=== PATIENT | female | born 1945 | race Caucasian/White ===

== ENCOUNTER 2016-10-18 06:51 | Day surgery (SDC) | payer MEDICARE ==
--- NOTE | 2016-10-06 10:37 | HP ---
Chief Complaint - Chief Complaint Date of Service: 10/06/16 Chief Complaint: need a colonoscopy History of Present Illness: 71 year old female who has never had a colonoscopy. History of lymphoma. No changes in bowel habits, no blood in stools, no weight loss or night sweats. - Patient's Past Medical History Patient History - Medical: Osteoarthritis Patient History - Cancer: Lymphoma Patient History - Surgical Procedures: Cataracts, Orthopedic - ORIF left wrist LMP (females 10-50): Menopausal - 10 years ago - Family History Family History:: no untoward family reactions to anesthesia, no familial bleeding tendencies - Family History Mother Family History - Medical: Family History - Cardiac/Respiratory: Pulmonary Embolism Family History - Cancer: Lymphoma Father Family History - Medical: Family History - Cardiac/Respiratory: CVA/Stroke - Social History Living Situations: spouse Abuse History: No History of abuse Psych History: No pertinent hx Does anyone smoke in the home?: No Alcohol Use: none Drug Use: none - Immunizations Immunizations Up to Date: No Hx Pneumococcal Vaccination: No History of Influenza Vaccine: Yes Review Of Systems (GEN) - Review of Systems Generalized/Overall Review: Absent: Weakness, Chills, Fever, Malaise, Fatigue, Weight loss EENTM: Absent: Tearing, Ear Pain, Nose Congestion, Throat Pain Respiratory: Absent: Cough, Shortness of Breath, Stridor, Wheezing Cardiac: Absent: Chest Pain, Edema, Palpitations Abdominal: Present: Constipation. Absent: Nausea, Vomiting, Abdominal Pain, Diarrhea, Bright blood from rectum Genitourinary: Present: Urgency, Nocturia. Absent: Frequency, Hesitancy, Incontinent Musculoskeletal: Present: Joint Pain Neurological: Absent: Headache, Anxiety, Depressed, Emotional Problems, Tingling , Tremors, Weakness Skin: Absent: Dryness, Lesions, Lumps, Rash, Bruising Endocrine: Absent: Intolerance to Cold, Intolerance to Heat, Excessive Sweating Allergies/Adverse Reactions: Allergies Allergy/AdvReac Type Severity Reaction Status Date / Time No Known Allergies Allergy Verified 10/06/16 10:33 Home Medications: HOME MEDICATIONS Aspirin [Aspirin Enteric Coated] 81 mg PO DAILY 05/12/15 [Last Taken Unknown] Naproxen Sodium [Aleve] 220 mg PO BID PRN 05/12/15 [Last Taken Unknown] Vit D3/Folic Acid/B2/B6/B12 [Folgard Tablet] 1 each PO 10/06/16 [Last Taken Unknown] Exam - Exam Vital Signs: Vital Signs - Last Taken Temp 36.5 10/06/2016 Pulse 70 Resp 15 BP 121/60 10/06/16 Pulse Ox Ht 5'3 Wt 165# Constitutional: Present: Alert, Oriented x3, Cooperative, Well developed, Well nourished, Mild distress, Overweight ENT Exam: Present: hearing grossly normal Eye Exam: bilateral eye: normal inspection Breasts: Present: Exam deferred Respiratory: Present: chest non-tender, lungs clear, normal breath sounds, no respiratory distress, no accessory muscle use Cardiovascular/Chest: Present: normal peripheral pulses, regular rate, rhythm, no chest tenderness, no edema, no gallop, no murmur Abdomen: Present: Normal bowel sounds, soft, nontender, nondistended, no masses /Rectal: Present: Exam deferred Extremity: Present: normal range of motion, non-tender, normal inspection, other - scar left wrist Skin Exam: Present: normal color, warm/dry, no cyanosis Neurologic: Present: no motor/sensory deficits, alert, normal mood/affect Appearance: Present: appropriate appearance, appropriate insight, neat, no memory impairment Eye contact: Present: cooperative, good eye contact, normal speech Thoughts: Present: normal thought pattern Assessment/Plan - Narrative Narrative: Discussed the risks and benefits for a colonoscopy. Prep discussed. Will schedule at her convenience. Questions answered. Can stay on baby ASA. - Assessment/Plan (1) Screen for colon cancer Problem: Acute (2) Lymphoma Problem: Resolved Qualifiers: Lymphoma type: Hodgkin
[~2016-10-18 06:51] MED LIST: RINGERS SOLUTION,LACTATED 1,000 ML IV PRN
--- OUTSIDE RECORDS SUMMARY | 2016-10-18 06:55 | XMS REPORT | Continuity of Care Document ---
:1945 Author Organization [facility] ([facility]) Address [address] [place] [address] Phone [phone] Care Team Providers Name Role Phone Betsy Aldana Primary Care Provider [phone] Source Comments This disclosure is being made pursuant to the Care Everywhere program, applicable federal and state laws, and may not contain all informaitonavailable regarding this patient.[facility] ([facility]) Active Allergies and Adverse Reactions No Active Allergies Current Medications Prescription Sig. Disp. Refills Start Date End Date Status aspirin 81 mg tablet Take 81 mg by mouth Active daily. 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 Antineoplastic and immunosuppressive drugs causing adverse effect in 2005 therapeutic use Social History Tobacco Use Types Packs/Day Years Used Date Former Smoker Cigarettes 1 15 Quit: 06/19/1983 Last Filed Vital Signs Vital Sign Reading Time Taken Blood Pressure 168/68 06/07/2011 8:59 AM APPOINTMENT COORDINATOR Pulse 58 06/07/2011 8:59 AM APPOINTMENT COORDINATOR Temperature 36.2 C (97.2 F) 06/07/2011 8:59 AM APPOINTMENT COORDINATOR Respiratory Rate 16 06/07/2011 8:59 AM APPOINTMENT COORDINATOR Height 1.66 m (5' 5.35") 06/07/2011 8:59 AM APPOINTMENT COORDINATOR Weight 72.4 kg (159 lb 9.8 oz) 06/07/2011 8:59 AM APPOINTMENT COORDINATOR Body Mass Index 26.27 06/07/2011 8:59 AM APPOINTMENT COORDINATOR Oxygen Saturation 98% 06/07/2011 8:59 AM APPOINTMENT COORDINATOR Plan of Care Health Maintenance Due Date Last Done Comments HCV Screening 1945 Hepatitis B Vaccine (1 of 3 - Primary Series) 1945 Tdap Vaccine 1957 Lipid Disorder Screening 1964 Td Vaccine 1964 Mammogram 1986 Colonoscopy 05/01/1996 Zoster Vaccine 2006 Osteoporosis Screening (DXA Bone Density) 2011 Pneumococcal Vaccine (1 of 2 - PCV13) 2011 Influenza Vaccine: Seasonal (#1) 01/18/2016 Results from Last 3 Months Not on file
[2016-10-18] MEDS ORDERED: RINGERS SOLUTION,LACTATED 1,000 ML IV PRN (08:30)
--- NOTE | 2016-10-18 08:32 | OR ---
Operative Report - Dictated Report Narrative: DATE OF PROCEDURE: 10/18/2016 PREOPERATIVE DIAGNOSIS: #1 Screening colonoscopy #2 history of lymphoma POSTOPERATIVE DIAGNOSIS: #1 Screening colonoscopy #2 extensive diverticulosis OPERATION: Colonoscopy SURGEON: Ritchie Russo M.D., FACS ANESTHESIA : Ac Lombardo CHERRY SORTER sedation INDICATIONS: This is a 71 year old female who presents for a screening colonoscopy. I have discussed the risks, benefits, indications, and contraindications for colonoscopy with the possibility of biopsy and/or polypectomy. She understands, agrees, and wishes to proceed. She has undergone a SUPREP and has tolerated it well. PROCEDURE: The patient was brought to the operating theater and placed into the left lateral decubitus position. The patient underwent sedation per anesthesia , and a digital rectal exam was performed. This was noted to be unremarkable. The patient was noted to have no internal or external hemorrhoids. The Olympus video colonoscope was introduced and advanced into the rectum. The rectum was normal in appearance. The scope was then advanced through the sigmoid, where extensive diverticular disease was noted. The scope was then advanced to the cecum using standard reduction techniques. The appendiceal orifice was noted. The ileocecal valve was noted. The prep appeared to be excellent with a Troy prep score of 9. The scope was withdrawn slowly as the ascending, transverse, descending, and sigmoid colon were examined in a circumferential fashion. The scope was brought back into the rectum where it was retroflexed in the lower rectum was examined. The air was decompressed, and the scope was then removed. Withdrawal time was 9 minutes. POSTOPERATIVE CONDITION: The patient was awakened and taken to the ambulatory surgery center in good condition. No complications were encountered. FINDINGS: Diverticulosis Specimens: None EBL: 0 The findings were discussed with the patient and her . I recommend a follow-up colonoscopy in 10 years for screening purposes.
[2016-10-18 09:43] VITALS: BP 157/63
== END 2016-10-18 06:52 | disposition home or self-care (01) ==
LOC: AMB 06:51
PROVIDERS: ATTEND Surgery
PROC: 0DJD8ZZ Inspection of Lower Intestinal Tract, Via Natural or Artificial Opening Endoscopic (ICD-10-PCS; principal; 2016-10-18 07:55)
DX: Z12.11 Encounter for screening for malignant neoplasm of colon (principal); K57.30 Diverticulosis of large intestine without perforation or abscess without bleeding; Z85.72 Personal history of non-Hodgkin lymphomas; Z68.29 Body mass index [BMI] 29.0-29.9, adult

== ENCOUNTER 2018-10-15 06:35 | Inpatient (IN) ==
--- NOTE | 2018-09-26 15:01 | ANES ---
Anesthesia Pre Procedure Eval HOME MEDICATIONS Aspirin [Aspirin Enteric Coated] 81 mg PO DAILY 05/12/15 [Last Taken Unknown] Cholecalciferol [Vitamin D] 5,000 unit PO DAILY 10/18/16 [Last Taken Unknown] lisinopril 20 mg tablet 20 mg PO DAILY 90 Days #90 tab 05/04/18 [Last Taken Unknown] atorvastatin 20 mg tablet 20 mg PO DAILY #90 tab 05/28/18 [Last Taken Unknown] acetaminophen ER 650 mg tablet,extended release 1,300 mg PO TID PRN tab 09/13/18 [Last Taken Unknown] Allergies/Adverse Reactions: Allergies Allergy/AdvReac Type Severity Reaction Status Date / Time No Known Allergies Allergy Verified 09/26/18 08:33 - Planned Procedure Planned Procedure: Left Arthroplasty Total Knee Medication List Reviewed:: Yes Allergies Verified: Yes Medical History (Updated 09/26/18 @ 08:33 by Loli Tijerina RN) Bilateral knee pain (Acute) Onset Date: Unknown Lymphoma malignant, 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 Tx'd with chemo and radiation- >5 years ago Cystocele (Chronic) Onset Date: ~09/03/13 midline Acquired hammertoe Onset Date: ~05/31/12 Wears dentures Wears eyeglasses Rectocele Onset Date: ~09/03/13 Surgical History (Updated 09/13/18 @ 08:57 by Brijesh Weiner) Cataract Onset Date: ~05/2015 bilateral H/O arthroscopy of knee Onset Date: ~1994 Rt 1995; Lt 1994 x 2 History of colonoscopy Onset Date: ~10/18/16 Dr. uRsso S/P wrist surgery Onset Date: ~1996 fracture LT ORIF Family History (Last Reviewed 07/14/18 @ 12:05 by Sophia Mclean RN) Father , 84-ruptured diverticulum, stroke at the age of 63. No problems noted. Mother , 76-Lumphoma, P.E. DM No problems noted. - Family Anesthesia History Family History:: no untoward family reactions to anesthesia, no familial bleeding tendencies, no family history of clotting disorders, no family history of premature - Airway/Neck/Teeth Within Normal Limits:: Yes Denture Type: Full upper, Partial lower Mallampatti Score: 3 Thyromental (T-M) distance: > 6 cm Mandibulo Hyoid distance: > 3 cm - Respiratory Smoking Status: Never smoker Discussed smoking cessation including day of surgery: No Sleep Apnea currently treated: No Sleep Apnea by current assessment: No Discussed Risks/Treatment of PRAKASH: No - Cardiovascular Tolerate Activity: Fair Heart Sounds: S1 & S2, Regular - Anesthesia Assessment and Plan ASA Class: PS, II Anesthesia Type Plan: Block - Left ultrasound guided peripheral nerve block for postop analgesia, Spinal
[~2018-10-15 06:35] MED LIST changes: +MORPHINE SULFATE 15 MG TABLET.SA PO PRN; -RINGERS SOLUTION,LACTATED 1,000 ML IV PRN; +ROPIVACAINE HCL/PF 100 MG, EPINEPHrine 0.2 MG, KETOROLAC TROMETHAMINE 30 MG in NORMAL S... IJ PRN; +TRANEXAMIC ACID 1,000 MG in NORMAL SALINE 100 ML IV PRN; +ceFAZolin SODIUM 1 GM VIAL IV PRN
[2018-10-15] MEDS: RINGER'S SOLUTION,LACTATED 1,000 ML IV PRN ×3 (07:16→09:58)
[2018-10-15] MEDS ORDERED: ACETAMINOPHEN 500 MG TABLET PO PRN (09:54)
[2018-10-15] MEDS ORDERED: ZOLPIDEM TARTRATE 5 MG TABLET PO PRN (09:54)
[2018-10-15] MEDS ORDERED: MAG HYDROX/ALUMINUM HYD/SIMETH 30 ML UDC PO PRN (09:54)
[2018-10-15] MEDS ORDERED: diphenhydrAMINE HCL 50 MG/ML VIAL IV PRN (09:54)
[2018-10-15] MEDS ORDERED: MORPHINE SULFATE 2 MG/ML DISP.SYRIN IV PRN (09:54)
[2018-10-15] MEDS ORDERED: MAGNESIUM HYDROXIDE 30 ML UDC PO PRN (09:54)
--- NOTE | 2018-10-15 09:54 | OR ---
Operative Report - Dictated Report Narrative: Date: 10/15/2018 Preoperative diagnosis: Left Knee degenerative joint disease. Postoperative diagnosis: Left Knee degenerative joint disease. Procedure: Left Total knee arthroplasty. Surgeon: Sedrick Rawls M.D. Cigarette Making Examiner: Waylon Kay PA-C (provided and essential set of skilled, educated hands that assisted with transfer, positioning, prepping, draping, manipulation, retraction, placement of jigs, injection, insertion of implants, irrigation, closure wounds, and dressings all of which could not be performed by the available surgical crew) Anesthesia: Spinal with regional block and local periarticular joint injection. Complications: None Specimens: Bone for disposal. Estimated blood loss: Minimal. Tourniquet time: 100 Minutes at 350 millimeters of mercury. Retained implants: Depuy Attune size 7 left lugged cemented posterior stabilized femoral component. Size 5 fixed-bearing cemented tibial platform. 7 by 6 millimeter posterior stabilized cross-linked tibial insert. 38 millimeter medialized patella button. Indications: Mrs. Deras is a 73-year-old female who has had long-standing bilateral knee pain arthrosis. She failed today for her left total knee with a staged right to be performed in 2 days. This patient was followed in my clinic for period of time with significant complaints of left knee pain consistent with arthritic changes. She had failed conservative measures including, but not limited to, activity modification, passage of time, medications, and other conservative measures. Patient wished to proceed with surgical treatment. The risks, benefits, and alternatives were discussed in clinic. The risks of , blood clots, bleeding, infection, nerve/tendon blood vessel/ injury, malposition of components, intraoperative fracture, postoperative limited range of motion, persistent pain, failure of components, and need for additional procedures. Patient wished to proceed consent was obtained after answering all questions. Procedure: After marking the correct extremity on the floor, the patient was taken to the operating room. A timeout was performed. IV antibiotics consisting of Ancef were administered prior to the procedure. A regional followed by spinal anesthetic was induced by anesthesia, per my request, on the operative table with all bony prominences well-padded. Mittal catheter was placed, and a bump was placed under the operative side buttock. SCDs and TOM hose were utilized on the nonoperative leg. A well-padded tourniquet was applied to the operative thigh. The operative leg was then pre-scrubbed with alcohol, prepped, and draped in a standard sterile fashion. After exsanguinating the extremity with an Esmarch bandage, the tourniquet was inflated. After marking out the anterior knee for standard incision centered over the patella, the skin was incised and dissected down to the joint retinaculum. The joint retinaculum was marked out as well as the horizontal axis of the patella, and a standard medial parapatellar arthrotomy was then made. The most proximal aspect of the quadriceps tendon and the patella tendon insertion were protected from release. A partial synovectomy was performed as well as a resection of the infrapatellar fat pad. The distal femoral fat pad proximal to the trochlea was also resected using cautery. The soft tissues were elevated off the medial aspect of the proximal tibia using a Rosado elevator ensuring that we did not transect the medial collateral ligament. Upon initial evaluation range of motion was approximately 5 degrees to 50 degrees of flexion. There were signs of advanced arthrosis in the medial, lateral, and patellofemoral joint spaces. There were large marginal osteophytes which were removed with a rongeur. The knee was hyperflexed and the patella was tucked laterally. Protecting the surrounding soft tissues with Homans, an entry drill was placed down the femoral canal using Whitesides line for guidance into the entry point. The intramedullary femoral alignment concepcion was utilized in order to cut the distal femur in 5 degrees of valgus resecting 11 millimeters of bone. Next the distal femur was sized to a size 7. A posterior referencing guide was utilized to place the distal femoral cutting block in 3 degrees of external rotation. This was pinned into place. The rotation was confirmed both visually and based on anatomic landmarks. The 4 in 1 cutting jig of the appropriate size was utilized in order to make all bony cuts. The angle wing was used to ensure no notching. Retractors were utilized in order to protect surrounding soft tissues. This cut did not result in any excessive notching. We then cut the box centered over the distal femur. This allowed for resection of the anterior and posterior cruciate ligaments. I then turned my attention to the preparation of the tibia. Using an extra medullary tibial alignment concepcion, 3 millimeters of bone was resected off the medial articular surface. This was made perpendicular to the mechanical axis of the joint with the alignment concepcion centered over the ankle mortise. The alignment concepcion was checked and was noted to be parallel to the mechanical axis, centered over the medial one third of the tibial tubercle, paralleling the anterior surface of the tibia. We then turned our attention to the remaining meniscus and soft tissues. These were removed while protecting the surrounding ligaments and soft tissues. The marginal osteophytes off the anterior, posterior, medial, lateral aspects of the femur and tibia were removed. The tibia was sized out to a size 5. Next the tibia was drilled and punched in an externally rotated position. Next the trial femur and a series of tibial inserts were utilized in order to allow for full extension and maximal flexion. It was found that a 6 millimeter insert gave the best range of motion and stability at multiple flexion points as well as at full extension there was less than 2 mm of gapping both medially and laterally. There is minimal anterior translation with the knee at 90 degrees of flexion and no signs of being able to dislocate the knee. The patella was then prepared. The initial thickness was 23 millimeters. This was reamed down to 13 millimeters parallel to the anterior surface of the patella. It was sized out to a size 38 medialized patella button. This was then drilled and trialed. Without any medial restraint the patella tracked appropriately and did not sublux or dislocate. At this point, it was felt these were the appropriate sized implants, and all trials were removed. The standard periarticular joint injection consisting of ropivacaine, Toradol, and epinephrine were injected into the periarticular joint tissues. The bony surfaces were thoroughly irrigated with a pulsatile-suction saline irrigation device. A bone plug from the prior resected anterior chamfer cut was placed into the drill hole at the distal femur. The bony surfaces were then dried in preparation for placement of the implants. The cement was vacuum mixed per the plug sorter's instructions. The cement was placed on the dry bony surfaces and posterior aspect of the implants. The implants were impacted into place, removing all extruded cement. At this point anesthesia administered tranexamic acid per protocol intravenously. The knee was placed in extension with axial loading with the trial insert while the cement cured. Once the cement cured, all remaining extruded cement was removed. The knee was placed through a range of motion with the trial insert to ensure appropriate range of motion and stability. Final range of motion was approximately 0 to 110 degrees. The knee was again thoroughly irrigated with pulsatile saline lavage. The final polyethylene insert was then impacted into place ensuring no retained soft tissues. The remaining periarticular joint injection was injected. A medium Hemovac drain was placed exiting superior laterally. The knee was then placed over a triangle and the arthrotomy was closed with interrupted #1 Vicryl after thoroughly irrigating the joint. The deep and subcutaneous tissues were closed with interrupted 0 and 3-0 Vicryl respectively. Skin was closed with a running subcutaneous 3-0 Monocryl and Prineo Dermabond dressing. 4 x 4's, Sof-Rol, and a full leg Carlo wrap were applied. All sponge, needle, blade, and instrument counts were correct prior to closing the wounds. Postoperative condition: The patient was awoken and transferred to the postanesthesia care unit in stable condition. Plan is to be admitted to the inpatient medical/surgical floor postoperatively for 24 hours of IV antibiotics, physical therapy, occupational therapy, and medical comanagement. Patient will be weightbearing as tolerated with range of motion as tolerated. Plan is for staged right total knee in 2 days. DVT prophylaxis will be with SCDs, TOM hose, and pharmacological anticoagulation.
--- NOTE | 2018-10-15 10:09 | ANES ---
Post Anesthesia Discharge - Transfer of Care Transfer of Care handoff given to nurse: Yes - Discharge from PACU Discharge from PACU when meets criteria: Yes - Alert and comfortable.
--- NOTE | 2018-10-15 10:09 | ANES ---
Anesthesia Procedure Note Procedure Note: ANESTHESIA PROCEDURE NOTE Date of Procedure: 10/15/2018 Time of procedure: 7:45 AM. Performed by: Giacomo Almodovar CRNA, MSN Earth Auger Operator: Loli Tijerina RN. Preprocedure diagnosis: Left total knee arthroplasty pain. Post procedure diagnosis: Same. Procedure: Left Adductor Canal Block. Indications: Post left total knee arthroplasty pain relief. Findings: See below. Details of the procedure: The patient was brought to OR #4 and placed in supine position. The patient's left femoral area to the knee was prepped with chlorhexidine and using ultrasound guidance the left femoral artery wasidentified at approximately the proximal one third femur. Under ultrasound guidance the saphenous nerve was approached with visualization of a 4 inch shielded block needle approaching the adductor canal just under the sartorius muscle. Once saphenous nerve was identified with proximity to the needle tip, the saphenous nerve was surrounded with 30 mL bupivacaine 0.5% with 1-200,000 epinephrine. Please see radiology/ultrasound report for details and retained images of the procedure. EBL: 0 Fluids: N/A. Specimen: N/A. Post procedure condition: The patient tolerated the procedure well. No complications were noted. Thank you for this consultation. Giacomo Almodovar CRNA, MSN
[2018-10-15] MEDS: DEXTROSE 5%-LACTATED RINGERS 1,000 ML IV PRN ×2 (11:06→19:53)
[2018-10-15] MEDS: KETOROLAC TROMETHAMINE 15 MG/ML VIAL IV SCH ×3 (11:08→22:15)
[2018-10-15] MEDS: oxyCODONE HCL/ACETAMINOPHEN 1 TAB TABLET PO PRN ×3 (12:56→22:13)
[2018-10-15] MEDS: ceFAZolin SODIUM 1 GM in DEXTROSE 5 % IN WATER 50 ML IV SCH ×6 (13:06→23:59)
--- NOTE | 2018-10-15 13:17 | ANES ---
Post Anesthesia Assessment - Vital Signs Vitals: Last Vital Signs Temp 36.5 C 10/15/18 10:49 Pulse 64 10/15/18 12:34 Resp 16 10/15/18 11:34 BP 144/61 10/15/18 12:34 Pulse Ox 99 10/15/18 12:34 Airway Patency: Normal - Mental Status Level Of Consciousness: Awake, Alert, Appropriate - Pain Level Pain Score: 0 - N/V Assessment Nausea/Vomiting Presence: None Dehydration:: No
[2018-10-15] MEDS: SENNOSIDES/DOCUSATE SODIUM 1 TAB TABLET PO SCH (20:34)
[2018-10-15] MEDS: ROSUVASTATIN CALCIUM 10 MG TABLET PO SCH (20:34)
[2018-10-15] MEDS: LISINOPRIL 20 MG TABLET PO SCH (20:36)
[2018-10-16] MEDS: oxyCODONE HCL/ACETAMINOPHEN 1 TAB TABLET PO PRN ×2 (02:33→12:50)
[2018-10-16] MEDS: KETOROLAC TROMETHAMINE 15 MG/ML VIAL IV SCH ×4 (04:03→21:27)
[2018-10-16 05:26] LABS: Hematocrit 28.1 % (37.0-47.0); Hemoglobin 8.9 gm/dL (12.5-16.0); Mean Cell Volume 90.6 fl (78-100); Mean Corpuscular Hemoglobin 28.7 pg (27-31); Mean Corpuscular Hgb Conc 31.7 g/dl (32-36); Mean Platelet Volume 9.4 fl (8-12.5); Platelet Count 146 K/mm3 (150-450); Red Cell Distribution Width 13.9 % (11.5-14.0); White Blood Count 5.5 K/mm3 (4.0-10.5)
[2018-10-16 05:37] LABS: Anion Gap 9.6 mmol/L (6.8-13.8); BUN/Creatinine Ratio 22.9 (9.0-21.6); Carbon Dioxide 26.7 mmol/L (24-32.6); Estimated Creat Clear 43.8; Potassium 4.3 mmol/L (3.4-4.6)
[2018-10-16] MEDS: ONDANSETRON HCL/PF 2 MG/ML VIAL IV PRN ×2 (07:20→16:34)
[2018-10-16] MEDS: CHOLECALCIFEROL 5,000 UNIT TABLET PO SCH (08:06)
[2018-10-16] MEDS: FERROUS SULFATE 325 MG TABLET PO SCH (08:06)
[2018-10-16] MEDS: ENOXAPARIN SODIUM 40 MG/0.4 ML SYRG SC SCH (08:06)
--- NOTE | 2018-10-16 08:23 | PN ---
Subjective - Date and Time Seen Date: 10/16/18 Time: 08:16 Subjective Narrative: Reports some nausea with pain medications. Otherwise no complaints. Was able to walk in room with therapy. Slept OK. Denies calf pain, fever/chills. PE : Left leg - sensation intact to light touch, able to flex and extend toes/ankle, calf soft, dressings dry, drain in place, palp DP A/P - POD 1 s/p left total knee arthroplasty Plan for right TKA tomorrow. Continue pain control. Will keep gipson in for tomorrows surgery. Lovenox , SCD, Felipe for DVT prophylaxis, continue home meds. Will recheck labs post-op as she has some anemia but is asymptomatic at this time. NPO after midnight. Right leg marked today. Objective - Vitals Vitals: Last Vital Signs Temp 36.7 C 10/16/18 07:50 Pulse 59 L 10/16/18 07:50 Resp 16 10/16/18 07:50 BP 115/50 10/16/18 07:50 Pulse Ox 94 10/16/18 07:50 - Abnormal Lab Findings Abnormal Lab Findings: Abnormal Lab Results 10/16/18 10/16/18 Range/Units 05:10 05:10 RBC 3.10 L (4.2-5.4) M/mm3 Hgb 8.9 L (12.5-16.0) gm/dL Hct 28.1 L (37.0-47.0) % MCHC 31.7 L (32-36) g/dl Plt Count 146 L (150-450) K/mm3 BUN/Creatinine Ratio 22.9 H (9.0-21.6) Random Glucose 113 H (70-110) mg/dL Cauti Physician Documentation - Urinary Catheter Management Urethral (Gipson) Urethral Indwelling: Yes Reason for Continuing Indwelling Catheter: Surgical Procedure Date of Insertion: 10/15/18 Time of Insertion: 08:05 Assessment/Plan - Problems/Diagnosis (1) Acute blood loss anemia Problem: Acute (2) Status post total left knee replacement Problem: Acute (3) Hyperlipidemia Problem: Chronic (4) Hypertension Problem: Chronic
[2018-10-16] MEDS: HYDROcodone/ACETAMINOPHEN 1 EACH TABLET PO PRN (21:26)
[2018-10-16] MEDS: ROSUVASTATIN CALCIUM 10 MG TABLET PO SCH (21:27)
[2018-10-16] MEDS: LISINOPRIL 20 MG TABLET PO SCH (21:27)
[2018-10-16] MEDS: SENNOSIDES/DOCUSATE SODIUM 1 TAB TABLET PO SCH (21:27)
[2018-10-17] MEDS: HYDROcodone/ACETAMINOPHEN 1 EACH TABLET PO PRN ×2 (02:43→12:20)
[2018-10-17] MEDS: KETOROLAC TROMETHAMINE 15 MG/ML VIAL IV SCH ×2 (04:34→17:09)
[2018-10-17] MEDS: DEXTROSE 5%-LACTATED RINGERS 1,000 ML IV PRN ×3 (06:55→19:55)
--- NOTE | 2018-10-17 07:14 | ANES ---
Anesthesia Pre Procedure Eval Vitals/Labs: Last Vital Signs Temp 36.6 C 10/17/18 06:32 Pulse 66 10/17/18 06:32 Resp 12 10/17/18 06:32 BP 129/82 10/17/18 06:32 Pulse Ox 94 10/17/18 06:32 Laboratory Last Values WBC 5.5 K/mm3 (4.0-10.5) 10/16/18 05:10 RBC 3.10 M/mm3 (4.2-5.4) L 10/16/18 05:10 Hgb 8.9 gm/dL (12.5-16.0) L 10/16/18 05:10 Hct 28.1 % (37.0-47.0) L 10/16/18 05:10 MCV 90.6 fl (78-100) 10/16/18 05:10 MCH 28.7 pg (27-31) 10/16/18 05:10 MCHC 31.7 g/dl (32-36) L 10/16/18 05:10 RDW 13.9 % (11.5-14.0) 10/16/18 05:10 Plt Count 146 K/mm3 (150-450) L 10/16/18 05:10 MPV 9.4 fl (8-12.5) 10/16/18 05:10 Sodium 133 mmol/L (132-142) 10/16/18 05:10 133 mmol/L (130-142) 10/16/18 05:10 Potassium 4.3 mmol/L (3.4-4.6) 10/16/18 05:10 Chloride 101 mmol/L (97-106) 10/16/18 05:10 Carbon Dioxide 26.7 mmol/L (24-32.6) 10/16/18 05:10 9.6 mmol/L (6.8-13.8) 10/16/18 05:10 BUN 22 mg/dL (3-23) 10/16/18 05:10 0.96 mg/dL (0.4-1.4) 10/16/18 05:10 Est GFR (Non-Af Amer) 61 mL/min (60-130) 10/16/18 05:10 22.9 (9.0-21.6) H 10/16/18 05:10 113 mg/dL (70-110) H 10/16/18 05:10 Calcium 8.0 mg/dL (7.9-10.9) 10/16/18 05:10 HOME MEDICATIONS Aspirin [Aspirin Enteric Coated] 81 mg PO DAILY 05/12/15 [Last Taken 10/05/18] Cholecalciferol [Vitamin D] 5,000 unit PO DAILY 10/18/16 [Last Taken 10/14/18] acetaminophen ER 650 mg tablet,extended release 1,300 mg PO TID PRN tab 09/13/18 [Last Taken 10/14/18] Atorvastatin Calcium [Lipitor] 20 mg PO HS 10/15/18 [Last Taken 10/14/18] Ferrous Sulfate [Iron] 325 mg PO DAILY 10/15/18 [Last Taken 10/14/18] Lisinopril 20 mg PO HS 10/15/18 [Last Taken 10/14/18] Allergies/Adverse Reactions: Allergies Allergy/AdvReac Type Severity Reaction Status Date / Time No Known Allergies Allergy Verified 10/08/18 13:55 - Planned Procedure Planned Procedure: Right Arthroplasty Total Knee Medication List Reviewed:: Yes Allergies Verified: Yes Medical History (Updated 10/16/18 @ 08:22 by Sedrick Rawls MD) Bilateral knee pain (Acute) Onset Date: Unknown Lymphoma malignant, 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 Tx'd with chemo and radiation- >5 years ago Cystocele (Chronic) Onset Date: ~09/03/13 midline Hyperlipemia Hypertension Lives with spouse No history of alcohol use Non-tobacco user Acquired hammertoe Onset Date: ~05/31/12 Wears dentures Wears eyeglasses Rectocele Onset Date: ~09/03/13 Surgical History (Updated 10/16/18 @ 08:22 by Sedrick Rawls MD) Cataract Onset Date: ~05/2015 bilateral H/O arthroscopy of knee Onset Date: ~1994 Rt 1995; Lt 1994 x 2 History of colonoscopy Onset Date: ~10/18/16 Dr. Russo S/P wrist surgery Onset Date: ~1996 fracture LT ORIF Family History (Last Reviewed 10/17/18 @ 07:12 by Gino Patiño CRNA) Father , 84-ruptured diverticulum, stroke at the age of 63. No problems noted. Mother , 76-Lumphoma, P.E. DM No problems noted. Brother Diabetes Brother Myocardial infarction Sister Alive and well Son Alive and well Son Alive and well - Family Anesthesia History Family History:: no untoward family reactions to anesthesia, no familial bleeding tendencies, no family history of clotting disorders, no family history of premature - Airway/Neck/Teeth Within Normal Limits:: Yes Teeth Condition: intact Denture Type: Full upper, Partial lower Mallampatti Score: 2 Thyromental (T-M) distance: > 6 cm Mandibulo Hyoid distance: > 3 cm - Respiratory Respiratory Physical: lungs clear Smoking Status: Never smoker Discussed smoking cessation including day of surgery: No Sleep Apnea currently treated: No Sleep Apnea by current assessment: No Discussed Risks/Treatment of PRAKASH: No - Cardiovascular Tolerate Activity: Fair Heart Sounds: S1 & S2, Regular - Anesthesia Assessment and Plan ASA Class: PS, II Anesthesia Type Plan: Block - Right ultrasound guided adductor canal nerve block for postop analgesia, Spinal
[2018-10-17] MEDS ORDERED: ROPIVACAINE HCL/PF 100 MG, EPINEPHrine 0.2 MG, KETOROLAC TROMETHAMINE 30 MG in NORMAL S... IJ PRN (07:30)
[2018-10-17] MEDS ORDERED: TRANEXAMIC ACID 1,000 MG in NORMAL SALINE 100 ML IV PRN (07:30)
[2018-10-17] MEDS: RINGER'S SOLUTION,LACTATED 1,000 ML IV PRN ×2 (08:42→09:50)
[2018-10-17] MEDS ORDERED: KETOROLAC TROMETHAMINE 15 MG/ML VIAL IV SCH (09:45)
[2018-10-17] MEDS ORDERED: MORPHINE SULFATE 2 MG/ML DISP.SYRIN IV PRN (09:45)
--- NOTE | 2018-10-17 09:51 | OR ---
Operative Report - Dictated Report Narrative: Date: 10/17/2018 Preoperative diagnosis: Right Knee degenerative joint disease. Postoperative diagnosis: Right Knee degenerative joint disease. Procedure: Right Total knee arthroplasty. Surgeon: Sedrick Rawls M.D. Engineer Specialist: Waylon Kay PA-C (provided and essential set of skilled, educated hands that assisted with transfer, positioning, prepping, draping, manipulation, retraction, placement of jigs, injection, insertion of implants, irrigation, closure wounds, and dressings all of which could not be performed by the available surgical crew) Anesthesia: Spinal with regional block and local periarticular joint injection. Complications: None Specimens: Bone. Estimated blood loss: Minimal. Tourniquet time: 100 Minutes at 350 millimeters of mercury. Retained implants: Depuy Attune size 6 right lugged cemented posterior stabilized femoral component. Size 5 fixed-bearing cemented tibial platform. 6 by 6 millimeter posterior stabilized cross-linked tibial insert. 38 millimeter medialized patella button. Indications: Mrs. Deras is a 73-year-old female who underwent her right knee after undergoing her left knee arthroplasty 2 days ago for chronic bilateral knee pain and arthrosis. This patient was followed in my clinic for period of time with significant complaints of right knee pain consistent with arthritic changes. She had failed conservative measures including, but not limited to, activity modification, passage of time, medications, and other conservative measures. Patient wished to proceed with surgical treatment. The risks, benefits, and alternatives were discussed in clinic. The risks of , blood clots, bleeding, infection, nerve/tendon blood vessel/ injury, malposition of components, intraoperative fracture, postoperative limited range of motion, persistent pain, failure of components, and need for additional procedures. Patient wished to proceed consent was obtained after answering all questions. Procedure: After marking the correct extremity on the floor, the patient was taken to the operating room. A timeout was performed. IV antibiotics consisting of Ancef were administered prior to the procedure. A regional followed by spinal anesthetic was induced by anesthesia, per my request, on the operative table with all bony prominences well-padded. Mittal catheter was already in place, and a bump was placed under the operative side buttock. SCDs and TOM hose were utilized on the nonoperative leg. A well-padded tourniquet was applied to the operative thigh. The operative leg was then pre-scrubbed with alcohol, prepped, and draped in a standard sterile fashion. After exsanguinating the extremity with an Esmarch bandage, the tourniquet was inflated. After marking out the anterior knee for standard incision centered over the patella, the skin was incised and dissected down to the joint retinaculum. The joint retinaculum was marked out as well as the horizontal axis of the patella, and a standard medial parapatellar arthrotomy was then made. The most proximal aspect of the quadriceps tendon and the patella tendon insertion were protected from release. A partial synovectomy was performed as well as a resection of the infrapatellar fat pad. The distal femoral fat pad proximal to the trochlea was also resected using cautery. The soft tissues were elevated off the medial aspect of the proximal tibia using a Rosado elevator ensuring that we did not transect the medial collateral ligament. Upon initial evaluation range of motion was approximately 10 degrees to 100 degrees of flexion. There were signs of advanced arthrosis in the medial, lateral, and patellofemoral joint spaces. There were large marginal osteophytes which were removed with a rongeur. The knee was hyperflexed and the patella was tucked laterally. Protecting the surrounding soft tissues with Homans, an entry drill was placed down the femoral canal using Whitesides line for guidance into the entry point. The intramedullary femoral alignment concepcion was utilized in order to cut the distal femur in 5 degrees of valgus resecting 11 millimeters of bone. Next the distal femur was sized to a size 6. A posterior referencing guide was utilized to place the distal femoral cutting block in 3 degrees of external rotation. This was pinned into place. The rotation was confirmed both visually and based on anatomic landmarks. The 4 in 1 cutting jig of the appropriate size was utilized in order to make all bony cuts. The angle wing was used to ensure no notching. Retractors were utilized in order to protect surrounding soft tissues. This cut did not result in any excessive notching. We then cut the box centered over the distal femur. This allowed for resection of the anterior and posterior cruciate ligaments. I then turned my attention to the preparation of the tibia. Using an extra medullary tibial alignment concepcion, 4 millimeters of bone was resected off the medial articular surface. This was made perpendicular to the mechanical axis of the joint with the alignment concepcion centered over the ankle mort ise. The alignment concepcion was checked and was noted to be parallel to the mechanical axis, centered over the medial one third of the tibial tubercle, paralleling the anterior surface of the tibia. We then turned our attention to the remaining meniscus and soft tissues. These were removed while protecting the surrounding ligaments and soft tissues. The marginal osteophytes off the anterior, posterior, medial, lateral aspects of the femur and tibia were removed. The tibia was sized out to a size 5. Next the tibia was drilled and punched in an externally rotated position. Next the trial femur and a series of tibial inserts were utilized in order to allow for full extension and maximal flexion. It was found that a 6 millimeter insert gave the best range of motion and stability at multiple flexion points as well as at full extension there was less than 2 mm of gapping both medially and laterally. There is minimal anterior translation with the knee at 90 degrees of flexion and no signs of being able to dislocate the knee. The patella was then prepared. The initial thickness was 21 millimeters. This was reamed down to 12 millimeters parallel to the anterior surface of the patella. It was sized out to a size 38 medialized patella button. This was then drilled and trialed. Without any medial restraint the patella tracked appropriately and did not sublux or dislocate. At this point, it was felt these were the appropriate sized implants, and all trials were removed. The standard periarticular joint injection consisting of ropivacaine, Toradol, and epinephrine were injected into the periarticular joint tissues. The bony surfaces were thoroughly irrigated with a pulsatile-suction saline irrigation device. A bone plug from the prior resected anterior chamfer cut was placed into the drill hole at the distal femur. The bony surfaces were then dried in preparation for placement of the implants. The cement was vacuum mixed per the extractor operator solvent process's instructions. The cement was placed on the dry bony surfaces and posterior aspect of the implants. The implants were impacted into place, removing all extruded cement. At this point anesthesia administered tranexamic acid per protocol intravenously. The knee was placed in extension with axial loading with the trial insert while the cement cured. Once the cement cured, all remaining extruded cement was removed. The knee was placed through a range of motion with the trial insert to ensure appropriate range of motion and stability. Final range of motion was approximately 0 to 115 degrees. The knee was again thoroughly irrigated with pulsatile saline lavage. The final polyethylene insert was then impacted into place ensuring no retained soft tissues. The remaining periarticular joint injection was injected. A medium Hemovac drain was placed exiting superior laterally. The knee was then placed over a triangle and the arthrotomy was closed with interrupted #1 Vicryl after thoroughly irrigating the joint. The deep and subcutaneous tissues were closed with interrupted 0 and 3-0 Vicryl respectively. Skin was closed with a running subcutaneous 3-0 Monocryl and Prineo Dermabond dressing. 4 x 4's, Sof-Rol, and a full leg Carlo wrap were applied. All sponge, needle, blade, and instrument counts were correct prior to closing the wounds. Postoperative condition: The patient was awoken and transferred to the postanesthesia care unit in stable condition. Plan is to be returned to the inpatient medical/surgical floor postoperatively for 24 hours of IV antibiotics, physical therapy, occupational therapy, and medical comanagement. Patient will be weightbearing as tolerated with range of motion as tolerated. DVT prophylaxis will be with SCDs, TOM hose, and pharmacological anticoagulation.
--- NOTE | 2018-10-17 09:59 | ANES ---
Post Anesthesia Discharge - Transfer of Care Transfer of Care handoff given to nurse: Yes - Discharge from PACU Discharge from PACU when meets criteria: Yes - Discharge to ASU Discharge to ASU-no complications/pt stable: Yes
--- NOTE | 2018-10-17 10:03 | ANES ---
Anesthesia Procedure Note Procedure Note: ANESTHESIA PROCEDURE NOTE Date of Procedure: 10/17/2018. Time of procedure: 0740. Performed by: Gino Patiño CRNA Carpenters Supervisor: None. Preprocedure diagnosis: Right knee degenerative joint disease. Post procedure diagnosis: Same. Procedure: Right ultrasound guided adductor canal block for postoperative analgesia. Indications: The patient is a 73 -year-old female, requesting right ultrasound- guided abductor canal block for postoperative analgesia related to right total knee arthroplasty. Findings: See below. Details of the procedure: The tissue over the intended target site was cleansed with ChloraPrepand draped in a sterile fashion. 2 ml Lidocaine 1 % was infiltrated to the skin and subcutaneous tissue at the intended target site. Under sterile technique and ultrasound guidance a 18-gauge Tuohy needle was inserted through the right sartorius muscle to the saphenous nerve just anterior and medial to the superficial femoral artery and vein. 15 mL's of 0.5% bupivacaine was injected after negative aspiration for blood. Needle tip and spread of local anesthetic surrounding the saphenous nerve was observed throughout the injection with real time ultrasound visualization. The Tuohy needle was then removed intact. No complications were noted. The images were retained in the Hospital medical database . EBL: Minimal. Fluids: N/A. Specimen: N/A. Post procedure condition: The patient tolerated the procedure well. No complications were noted. Thank you for this consultation. Gino Patiño CRNA
--- NOTE | 2018-10-17 11:32 | ANES ---
Post Anesthesia Assessment - Vital Signs Vitals: Last Vital Signs Temp 36.6 C 10/17/18 10:30 Pulse 60 10/17/18 10:39 Resp 12 10/17/18 10:39 BP 130/60 10/17/18 10:39 Pulse Ox 93 10/17/18 10:39 Airway Patency: Normal - Mental Status Level Of Consciousness: Awake - Pain Level Pain Score: 0 - N/V Assessment Nausea/Vomiting Presence: None Dehydration:: No
[2018-10-17] MEDS: FERROUS SULFATE 325 MG TABLET PO SCH (12:20)
[2018-10-17] MEDS: ceFAZolin SODIUM 1 GM in DEXTROSE 5 % IN WATER 50 ML IV SCH ×4 (12:21→17:10)
[2018-10-17] MEDS: CHOLECALCIFEROL 5,000 UNIT TABLET PO SCH (12:24)
[2018-10-17] MEDS: oxyCODONE HCL/ACETAMINOPHEN 1 TAB TABLET PO PRN ×2 (17:06→21:34)
[2018-10-17] MEDS: ROSUVASTATIN CALCIUM 10 MG TABLET PO SCH (21:34)
[2018-10-17] MEDS: LISINOPRIL 20 MG TABLET PO SCH (21:34)
[2018-10-17] MEDS: SENNOSIDES/DOCUSATE SODIUM 1 TAB TABLET PO SCH (21:34)
[2018-10-18] MEDS: KETOROLAC TROMETHAMINE 15 MG/ML VIAL IV SCH ×2 (00:06→05:44)
[2018-10-18] MEDS: ceFAZolin SODIUM 1 GM in DEXTROSE 5 % IN WATER 50 ML IV SCH ×2 (00:07)
[2018-10-18] MEDS: oxyCODONE HCL/ACETAMINOPHEN 1 TAB TABLET PO PRN ×2 (01:57→05:59)
[2018-10-18 05:33] LABS: Hematocrit 25.3 % (37.0-47.0); Hemoglobin 8.1 gm/dL (12.5-16.0); Mean Cell Volume 91.7 fl (78-100); Mean Corpuscular Hemoglobin 29.3 pg (27-31); Mean Platelet Volume 10.2 fl (8-12.5); Platelet Count 151 K/mm3 (150-450); Red Blood Count 2.76 M/mm3 (4.2-5.4); Red Cell Distribution Width 14.1 % (11.5-14.0); White Blood Count 6.2 K/mm3 (4.0-10.5)
[2018-10-18 05:43] LABS: Anion Gap 10.3 mmol/L (6.8-13.8); BUN/Creatinine Ratio 21.1 (9.0-21.6); Calcium * 8.1 mg/dL (7.9-10.9); Carbon Dioxide 27.1 mmol/L (24-32.6); Estimated Creat Clear 44.3; Potassium 4.4 mmol/L (3.4-4.6)
[2018-10-18] MEDS ORDERED: ceFAZolin SODIUM 1 GM VIAL IV PRN (06:00)
[2018-10-18] MEDS: FERROUS SULFATE 325 MG TABLET PO SCH (08:58)
[2018-10-18] MEDS: ENOXAPARIN SODIUM 40 MG/0.4 ML SYRG SC SCH (08:58)
[2018-10-18] MEDS: CHOLECALCIFEROL 5,000 UNIT TABLET PO SCH (08:59)
[2018-10-18] MEDS ORDERED: ONDANSETRON 4 MG TAB.RAPDIS PO PRN (09:03)
[2018-10-18] MEDS: HYDROcodone/ACETAMINOPHEN 1 EACH TABLET PO PRN ×4 (09:49→22:36)
--- NOTE | 2018-10-18 09:54 | PN ---
Subjective - Date and Time Seen Date: 10/18/18 Time: 07:45 Subjective Narrative: Subjective: Reports tolerable pain. She is having some nausea. She denies any lightheadedness or feelings of excessive weakness when ambulating. Was able to walk in the room with therapy. Pain is well-controlled. Voiding without any complications. Tolerating by mouth intake. Denies calf pain. Slept well. Physical exam: Alert and oriented to person, place and time Bilateral lower extremity: Palpable dorsalis pedis pulse. Sensation grossly intact to light touch. Dressings dry in the left, mild bloody drainage on the right at the drain site. Able to flex and extend ankle and toes. No excessive drainage. Calf and thigh are soft and nontender. Assessment: Postop day 1 status post right total knee arthroplasty, postop day 3 status post left total knee arthroplasty. Plan: Due to the need for pain control, post-operative limited mobility, protection of the surgical site and joint, monitoring of the wound, and the management of chronic medical conditions, she requires continued inpatient care. Continue with physical and occupational therapy weightbearing as tolerated. Continue with anticoagulation. 24 hours postoperative prophylactic antibiotics. Pain control with goal to rely on oral medications -she wants to utilize hydrocodone and we will make this adjustment. Continue bowel regimen. Will need 6 weeks with walker or assitive device to protect joint while ambulating during the recovery process. Discharge planning. Discontinue drain and Mittal catheter. Repeat hemogram in a.m. in order to monitor for postoperative anemia if she starts to display any clinical signs of symptomatic anemia Objective - Vitals Vitals: Last Vital Signs Temp 36.8 C 10/18/18 06:40 Pulse 64 10/18/18 06:40 Resp 16 10/18/18 06:40 BP 131/55 10/18/18 06:40 Pulse Ox 96 10/18/18 06:40 - Abnormal Lab Findings Abnormal Lab Findings: Abnormal Lab Results 10/18/18 10/18/18 Range/Units 05:05 05:05 RBC 2.76 L (4.2-5.4) M/mm3 Hgb 8.1 L (12.5-16.0) gm/dL Hct 25.3 L (37.0-47.0) % RDW 14.1 H (11.5-14.0) % Random Glucose 123 H (70-110) mg/dL Cauti Physician Documentation - Urinary Catheter Management Urethral (Mittal) Urethral Indwelling: Yes Date of Insertion: 10/15/18 Time of Insertion: 08:05 Date of Removal: 10/17/18 Time of Removal: 17:20 Assessment/Plan - Problems/Diagnosis (1) Acute blood loss anemia Problem: Acute (2) Status post total left knee replacement Problem: Acute (3) Hyperlipidemia Problem: Chronic (4) Hypertension Problem: Chronic (5) Status post total right knee replacement Problem: Acute
[2018-10-18] MEDS: SENNOSIDES/DOCUSATE SODIUM 1 TAB TABLET PO SCH (21:21)
[2018-10-18] MEDS: ROSUVASTATIN CALCIUM 10 MG TABLET PO SCH (21:22)
[2018-10-18] MEDS: LISINOPRIL 20 MG TABLET PO SCH (21:22)
[2018-10-19] MEDS: HYDROcodone/ACETAMINOPHEN 1 EACH TABLET PO PRN ×3 (03:24→12:23)
[2018-10-19] MEDS: ENOXAPARIN SODIUM 40 MG/0.4 ML SYRG SC SCH (10:03)
[2018-10-19] MEDS: CHOLECALCIFEROL 5,000 UNIT TABLET PO SCH (10:03)
[2018-10-19] MEDS: FERROUS SULFATE 325 MG TABLET PO SCH (10:03)
--- NOTE | 2018-10-19 11:13 | DS ---
(1) Acute blood loss anemia Problem: Acute (2) Status post total left knee replacement Problem: Acute (3) Hyperlipidemia Problem: Chronic (4) Hypertension Problem: Chronic (5) Status post total right knee replacement Problem: Acute Description of Stay: Mrs. Deras was admitted to the floor after undergoing staged bilateral total knee arthroplasty. Tolerated this well. Was admitted to the floor postoperatively for 24 hours of IV antibiotics, pain control, medical comanagement, and occupational and physical therapy after each knee. OT and PT were consulted to assist with activities of daily living and ambulation. Was made weightbearing as tolerated with range of motion as tolerated. Pain was initially controlled with IV regimen. This was transitioned to oral once tolerating a by mouth intake. Was resumed on home diet and medications. Had a Mittal catheter inserted and the operating room which was discontinued on postoperative day 1 after her second knee. A drain was placed intraoperatively into the knees which was discontinued on postoperative day 1. Lovenox SCD and TOM hose were utilized for DVT prophylaxis. Vital signs remained stable to the hospital course. Serial labs were obtained which showed a final hemoglobin of 8.1 grams. She did have some preoperative anemia and was otherwise asymptomatic and thus this was monitored.. BMP was reviewed and was stable. Physical examination throughout the hospital course showed an extremity that had sensation that was intact to light touch, palpable pulses, a benign wound, motor intact to the toes, ankle, and knee. Knee range of motion was approximately 0 degrees to 60 degrees bilaterally to. Once an oral pain regimen was tolerated and physical therapy goals were met, it was felt that they were stable for discharge to home. Instructions: Continue with weightbearing as tolerated and range of motion as tolerated. It is okay to shower and get the wound wet as long as there is no drainage from the wound. Do not bathe or soak the wound. If there is any drainage from the wound keep the wound clean and dry and cover with dry gauze and tape. Change every 2- 3 days as needed if there is any drainage. Cover wound while showering if there is any drainage. Continue with physical therapy. Resume home diet. Report any fever over 101.5 Fahrenheit, uncontrolled pain, increased drainage, foul odor of drainage, new or increased calf pain or shortness of breath, or any other significant complaints. A 325mg dialy aspirin will be started after finishing anticoagulation if not allergic. Continue with OTM hose on the operative extremity until instructed otherwise. No driving until instructed otherwise. Follow up in approximately 10-14 days. Procedures Performed: see notes below List Procedures: Bilateral total knee arthroplasty Results and Findings: Lab Pending Results 10/16/18 05:10: WBC 5.5, RBC 3.10 L, Hgb 8.9 L, Hct 28.1 L, MCV 90.6, MCH 28.7, MCHC 31.7 L, RDW 13.9, Plt Count 146 L, MPV 9.4 10/16/18 05:10: Sodium 133, Plasma Sodium 133, Potassium 4.3, Chloride 101, Carbon Dioxide 26.7, Anion Gap 9.6, BUN 22, Creatinine 0.96, Est GFR (Non-Af Amer) 61, BUN/Creatinine Ratio 22.9 H, Random Glucose 113 H, Calcium 8.0 10/18/18 05:05: WBC 6.2, RBC 2.76 L, Hgb 8.1 L, Hct 25.3 L, MCV 91.7, MCH 29.3, MCHC 32.0, RDW 14.1 H, Plt Count 151, MPV 10.2 10/18/18 05:05: Sodium 133, Plasma Sodium 133, Potassium 4.4, Chloride 100, Carbon Dioxide 27.1, Anion Gap 10.3, BUN 20, Creatinine 0.95, Est GFR (Non-Af Amer) 61, BUN/Creatinine Ratio 21.1, Random Glucose 123 H, Calcium 8.1 Discharge Location: Home Disposition: Home self-care Condition: Good Discharge Activity: Activity as tolerated, Weight bearing Discharge Diet: General/regular food Referrals: Sarah Galarza MD [Primary Care Provider] - Additional Patient Instructions (free text): -- Follow up in Orthopedic office scheduled with Dr. Rawls on 11/06/18 at 9:30am. -- [facility] Outpatient Physical Therapy scheduled on Monday10/22/18 at 2:45pm. Prescriptions (Any new or edited meds): Enoxaparin Sodium [Lovenox] 40 mg SC Q24H #7 disp.syrin HYDROcodone/ACETAMINOPHEN [Ava 5-325] 2 ea PO Q4H PRN #40 tab PRN Reason: Pain Sennosides/Docusate Sodium [Senokot-S] 2 tab PO HS #60 tab Complete Home Medications List: Complete Home Medication List: Aspirin [Aspirin Enteric Coated] 81 mg PO DAILY 05/12/15 Cholecalciferol [Vitamin D] 5,000 unit PO DAILY 10/18/16 Atorvastatin Calcium [Lipitor] 20 mg PO HS 10/15/18 Ferrous Sulfate [Iron] 325 mg PO DAILY 10/15/18 Lisinopril 20 mg PO HS 10/15/18 Enoxaparin Sodium [Lovenox] 40 mg SC Q24H #7 disp.syrin 10/19/18 HYDROcodone/ACETAMINOPHEN [Ava 5-325] 2 ea PO Q4H PRN #40 tab 10/19/18 Sennosides/Docusate Sodium [Senokot-S] 2 tab PO HS #60 tab 10/19/18 Amb Orders for Discharge: PT Evaluation and Treatment* Facility: [facility], Location: Rehabilitation Services
[2018-10-19 14:25] VITALS: BP 133/47
== END 2018-10-19 15:00 | disposition home or self-care (01) | DRG 462 ==
LOC: MS 06:35 → EDSTATUS 08:00
PROVIDERS: ADMIT Orthopaedic Surgery; ATTEND Orthopaedic Surgery
DX: D62 Acute posthemorrhagic anemia; E78.5 Hyperlipidemia, unspecified; M17.0 Bilateral primary osteoarthritis of knee; E66.09 Other obesity due to excess calories; Z68.34 Body mass index [BMI] 34.0-34.9, adult; I10 Essential (primary) hypertension
CPT/HCPCS: 36415; 73560; 80048; 85027; 97110; 97116; 97161; 97164; 97165; 97530; 97535; J2405